=== PATIENT | male | born 2000 | race Caucasian/White ===

== ENCOUNTER 2021-02-23 10:14 | Emergency (ER) | payer MEDICAID, OTHER ==
[~2021-02-23] VITALS: Ht 172.7 cm; Wt 61.0 kg
[2021-02-23 10:41] VITALS: BP 98/71
[2021-02-23 11:12] LABS: BASOPHILS # (AUTO) 0.1 X10'3 (0-0.2); BASOPHILS % (AUTO) 0.6 % (0-1); EOSINOPHILS % (AUTO) 0.4 % (0-6); HEMOGLOBIN 16.7 g/dl (14.0-17.9); LYMPHOCYTES # (AUTO) 2.3 X10'3 (1.1-4.8); LYMPHOCYTES % (AUTO) 23.1 % (21-51); MEAN CORPUSCULAR HEMOGLOBIN 28.3 PG (27.0-31.0); MEAN CORPUSCULAR VOLUME 83.3 FL (78-98); MEAN PLATELET VOLUME 6.9 FL (7.4-10.4); MONOCYTES # (AUTO) 0.8 X10'3 (0-0.9); MONOCYTES % (AUTO) 8.5 % (2-12); NEUTROPHILS # (AUTO) 6.6 X10'3 (1.8-7.7); NEUTROPHILS % (AUTO) 67.4 % (42-75); PLATELET COUNT 350 X10'3 (140-440); RED BLOOD COUNT 5.88 X10'6 (4.70-6.10); RED CELL DISTRIBUTION WIDTH 13.2 % (11.5-14.5); WHITE BLOOD COUNT 9.7 X10'3 (4.5-11.0)
[2021-02-23 11:27] LABS: ALANINE AMINOTRANSFERASE 20 U/L (12-78); ALBUMIN 4.1 G/DL (3.4-5.0); ALKALINE PHOSPHATASE 119 IU/L (46-116); ANION GAP 9 (8-16); ASPARTATE AMINO TRANSFERASE 14 U/L (10-37); BILIRUBIN,TOTAL 0.4 MG/DL (0.1-1.0); BLOOD UREA NITROGEN 15 MG/DL (7-18); BUN/CREATININE RATIO 15.5 (5.4-32.0); CALCIUM 10.1 MG/DL (8.5-10.1); CHLORIDE 103 MMOL/L (99-107); CREATININE 0.97 MG/DL (0.60-1.10); GLUCOSE 90 MG/DL (70-104); POTASSIUM 5.2 MMOL/L (3.5-5.1); SODIUM 138 MMOL/L (135-145); TOTAL CARBON DIOXIDE 26.2 MMOL/L (24-32); TOTAL PROTEIN 8.3 G/DL (6.4-8.2); eGFR > 90 ML/MIN
== END 2021-02-23 12:29 ==
LOC: ER 10:14
DX: I95.9 Hypotension, unspecified (principal)
CPT/HCPCS: 36415; 80053; 85025; 93005; 99284

== ENCOUNTER 2025-10-22 17:59 | Emergency (ER) | payer OTHER ==
[~2025-10-22] VITALS: Ht 175.3 cm; Wt 64.8 kg
[2025-10-22 18:20] VITALS: BP 119/76; PULSE 80; RESP 16; TEMP 98.4; O2SAT 99
--- NOTE | 2025-10-22 19:27 | Physician Documentation ---
History of Present Illness ~ Chief Complaint: Abscess Stated Complaint: ABCESS Time Seen by MD: 19:13 Primary Medical Doctor: Anders Saavedra In [facility] 25-year-old male presents to the ED with a complaint of multiple abscesses. States that he was in longterm and just released recently states that these abscess has been ongoing issue for him. Denies any IV drug use but does report current methamphetamine use. Tetanus Within 5 Years: Yes Medication Reconciliation Allergies: Coded Allergies: No Known Allergies (Unverified , 05/12/13) Past Medical History Past Medical History: No Pertinent History Past Surgical History: no surgical history Lives with: Family Lives In: Home Review of Systems All Other Systems at this time: Reviewed and Negative ROS As stated above in the HPI, otherwise all systems are reviewed and negative. Physical Exam Vital Signs: Temperature: 98.4, Source: Oral, Heart Rate: 80, Respiratory Rate: 16, BP: 119/76, Pulse Oximetry: 99, Weight: 64.800 Oxygen Flow Rate: 0 Physical Exam General: Alert, no apparent distress. Cardiovascular: Regular rate and rhythm, no murmurs. Extremities: Normal range of motion, no deformity. Erythematous areas on both lower extremities particularly on the left knee. Neurologic: Oriented x4. Psychiatric: Normal mood and affect. Skin: Patient also has a minor infections on the posterior aspect of his back no areas of fluctuance Progress Results/Orders Results/Orders Completed Orders - JAMIE WALTERS NP Ceftriaxone Im Kit W/Lidocaine (Rocephin (10/22/25 19:30) Medications Received in ER Medications (Trade) Dose Ordered Sig/Lorena Route PRN Reason Start Time Stop Time Status Last Admin Dose Admin (Rocephin 1GM IM kit (w/lidocaine diluent)) 1,000 mg ONCE ONCE IM 10/22/25 19:30 10/22/25 19:31 DC 10/22/25 19:37 1,000 MG Vital Signs 10/22/25 18:20 Temp 98.4 Pulse 80 Resp 16 B/P (MAP) 119/76 Pulse Ox 99 O2 Flow Rate 0 Medical Decision Making Additional information obtaine: old records Findings Going to treat this patient empirically as he does not have any signs of abscesses that would require I and D. Differential Dx:Considerations: Include: Abscess, Bacteremia, Cellulitis, Erysipelas, Felon, Gas gangrene, Hidrademitis suppurativa, Impetigo, Lymphangitis, Osteromyelitis, Paronychia, Septicemia, Other Departure Disposition: HOME / SELF CARE / HOMELESS Impression: Primary Impression: Abscess Additional Impression: Cellulitis Discharge Instructions: Cellulitis, Adult, [id number] Referrals: NO PRIMARY CARE PROVIDER (PCP) Prescriptions Sulfamethoxazole/Trimethoprim (Septra Ds Tab) 800 Mg/160 Mg Tablet 1 TAB PO Q12H for 10 Days, #20 TAB Prov: JAMIE WALTERS [employer] 10/22/25 Education Educated: Patient Educated regarding: diagnosis Signature Scribe Signature: Attestation: Scribed for Jamie Walters D[employer] Box Operator by Jamie Ibrahim NP . 10/22/25 19:35 JAMIE WALTERS NP Oct 22, 2025 19:27
[2025-10-22] MEDS: CefTRIAXone 1000mg IM Kit (w/lidocaine diluent) IM ONE (19:37)
[2025-10-22] MEDS ORDERED: SULF1TAB45 PO (19:47)
== END 2025-10-22 19:51 | disposition home or self-care (01) ==
LOC: ER 17:59
DX: L02.416 Cutaneous abscess of left lower limb (principal); L03.116 Cellulitis of left lower limb; F15.90 Other stimulant use, unspecified, uncomplicated
CPT/HCPCS: 96372; 99283; J0696